=== PATIENT | female | born 2000 | race Caucasian/White ===

== ENCOUNTER 2018-11-15 11:03 | Observation (INO) | payer BC, OTHER ==
[2018-11-15 13:05] VITALS: BP 109/59; PULSE 75
--- NOTE | 2018-11-15 14:24 | XRAY ---
Exam: Biophysical profile. Comparison: None. Indication: Nonreactive stress test. The instrument technologist performed the exam. There was presence of at least 30 seconds of sustained breathing movements in a 30 minute time span resulting in a score of 2 out of 2. 3 or more gross body movements in 30 minutes of observation were seen resulting in a score of 2 out of 2. There was at least one episode of motion of a limb from a position of flexion to extension and a rapid return to flexion resulting in a score of 2 of 2 for tone. A pocket of amniotic fluid measuring at least 1 cm in perpendicular plane was seen resulting in a score of 2 of 2. In fact, amniotic fluid index was calculated 15.9 cm The heart rate measured 131 bpm. Impression: 1. Biophysical profile is scored as 8 points out of a maximum of 8 points for breathing movements, gross body movements, tone, and qualitative amniotic fluid volume.
== END 2018-11-15 14:20 | disposition home or self-care (01) ==
LOC: OB 11:03
PROVIDERS: ADMIT Family Medicine; ATTEND Family Medicine
DX: Z34.03 Encounter for supervision of normal first pregnancy, third trimester (principal)
CPT/HCPCS: 76818; 81003; G0378

== ENCOUNTER 2018-12-16 21:35 | Inpatient (IN) | payer BC, OTHER ==
[2018-12-17 00:37] VITALS: O2SAT 97
[2018-12-17 00:51] LABS: Hematocrit 33.9 % (35-47); Hemoglobin 11.3 gm/dl (12.0-16.0); Mean Cell Volume 92.4 fl (78-100); Mean Corpuscular Hgb Concent. 33.3 g/dl (32-36); Mean Platelet Volume 9.9 fl (6-9.5); Platelet Count 258 K/mm3 (150-450); Red Blood Count 3.67 M/mm3 (4.1-5.4); Red Cell Distribution Width 13.2 % (11.5-14.0); White Blood Count 10.7 K/mm3 (4.0-10.5)
[2018-12-17 01:08] LABS: Appearance CLEAR (CLEAR); Bilirubin NEGATIVE (NEGATIVE); Blood NEGATIVE Ery/ul (0-5); Glucose NEGATIVE (NEGATIVE); Ketones NEGATIVE (NEGATIVE); Leukocyte Esterase NEGATIVE (NEGATIVE); Nitrite NEGATIVE (NEGATIVE); Protein,Urine Dip NEGATIVE (Negative); Specific Gravity 1.009 (1.005-1.025); Urobilinogen NEGATIVE mg/dL (0-1)
[2018-12-17 01:19] LABS: Bacteria NONE SEEN /HPF (NEGATIVE)
[2018-12-17 01:22] LABS: Amphetamine,Urine NEGATIVE (NEGATIVE); Barbiturate,Urine NEGATIVE (NEGATIVE); Benzodiazepine,Urine NEGATIVE (NEGATIVE); Cocaine,Urine NEGATIVE (NEGATIVE); Methadone,Urine NEGATIVE (NEGATIVE); Opiate,Urine NEGATIVE (NEGATIVE); PCP,Urine NEGATIVE (NEGATIVE); THC,Urine NEGATIVE (NEGATIVE)
[2018-12-17 01:24] LABS: Mean Corpuscular Hemoglobin 30.7 pg (26-32)
[2018-12-17 01:36] LABS: ABO TYPING O; Antibody Screen NEGATIVE (NEGATIVE); RH TYPING POSITIVE
[2018-12-17 02:23] LABS: BAND 5 % (0.0-2.0); Lymphocytes 12 % (24-44); Monocyte 6 % (0.0-12.0); Neutrophils 77 % (36.0-66.0); Platelet Estimate NORMAL (NORMAL); Total Cells Counted 100
[2018-12-17] MEDS ORDERED: BRETHINE 1 MG/ML SQ PRN (04:00)
[2018-12-17] MEDS ORDERED: Cervidil 10 MG VAG SCH (04:00)
[2018-12-17] MEDS ORDERED: XYLOCAINE 1% HCL 20 ML MDV IJ PRN (08:15)
[2018-12-17] MEDS ORDERED: PITOCIN 30 UNITS/ LR 500 ML 30 UNITS/500 ML IV.SOLN. IV SCH (08:15)
[2018-12-17] MEDS ORDERED: Lactated Ringers 1,000 ML IV SCH (16:30)
[2018-12-17] MEDS ORDERED: PITOCIN 30 UNITS/ LR 500 ML 500 ML IV SCH (16:30)
[2018-12-17] MEDS: Lactated Ringers 1,000 ML IV SCH (16:55)
[2018-12-17] MEDS ORDERED: OMNIPEN 2 GM / NACL 100ML 100 ML IV ONE (17:16)
[2018-12-17] MEDS: OMNIPEN 1GM / NaCl 100ML 100 ML IV SCH (21:40)
[2018-12-18] MEDS: Lactated Ringers 1,000 ML IV SCH (01:32)
[2018-12-18] MEDS: OMNIPEN 1GM / NaCl 100ML 100 ML IV SCH ×2 (02:10→06:05)
[2018-12-18] MEDS ORDERED: Lactated Ringers 1,000 ML IV ONE (02:12)
[2018-12-18] MEDS ORDERED: Ephedrine Sulfate 50 MG/ML IV PRN (02:12)
[2018-12-18] MEDS ORDERED: OB EPIDURAL NAROPIN/SUFENTANIL IN NACL EPIDURAL PRN (02:12)
[2018-12-18] MEDS ORDERED: Sensorcaine 0.25% 10 ML ONE (08:38)
[2018-12-18] MEDS ORDERED: Mylicon 80MG PO PRN (09:25)
[2018-12-18] MEDS ORDERED: NORCO 5/325 MG PO PRN (09:25)
[2018-12-18] MEDS ORDERED: Dulcolax 10 MG SUPP PR PRN (09:25)
[2018-12-18] MEDS ORDERED: Ambien 10 MG PO PRN (09:25)
[2018-12-18] MEDS ORDERED: CORTISONE 1% CREAM TP PRN (09:25)
[2018-12-18] MEDS ORDERED: Anucort-HC SUPPOSITORY PR PRN (09:25)
[2018-12-18] MEDS ORDERED: LANSINOH 40 GM TOP PRN (09:25)
[2018-12-18] MEDS ORDERED: TYLENOL EXTRA STRENGTH 500 MG PO PRN (09:25)
[2018-12-18] MEDS ORDERED: TUCKS TP PRN (09:25)
[2018-12-18] MEDS ORDERED: Dermoplast Spray TP PRN (09:25)
[2018-12-18] MEDS ORDERED: MOTRIN 400 MG PO PRN (09:25)
[2018-12-18] MEDS: Colace 100 MG PO SCH ×2 (15:16→23:13)
[2018-12-18] MEDS: FERREX 150 PO SCH (15:16)
[2018-12-18 21:05] LABS: Hematocrit 34.7 % (35-47); Hemoglobin 11.4 gm/dl (12.0-16.0); Mean Cell Volume 93.8 fl (78-100); Mean Corpuscular Hemoglobin 30.8 pg (26-32); Mean Corpuscular Hgb Concent. 32.9 g/dl (32-36); Mean Platelet Volume 9.5 fl (6-9.5); Platelet Count 273 K/mm3 (150-450); Red Cell Distribution Width 13.4 % (11.5-14.0); White Blood Count 14.3 K/mm3 (4.0-10.5)
[2018-12-19 00:10] LABS: ATYPICAL LYMPHS 2 %; BAND 3 % (0.0-2.0); Basophil 1 % (0.0-1.0); Lymphocytes 16 % (24-44); Monocyte 7 % (0.0-12.0); Neutrophils 71 % (36.0-66.0); Platelet Estimate NORMAL (NORMAL); Total Cells Counted 100
[2018-12-19] MEDS: Colace 100 MG PO SCH ×2 (10:58→22:47)
[2018-12-19] MEDS: FERREX 150 PO SCH (10:58)
[2018-12-19] MEDS ORDERED: Adacel Vial IM ONE (14:00)
--- NOTE | 2018-12-20 07:55 | PCM.DS ---
Discharge Summary Date of Admission: 12/17/18 22:00 Admitting Physician: MATTHEW LUDWIG Consults: Consults on Case 12/18/18 02:13 Notify Anesthesia Provider PRN 12/18/18 09:25 Notify Physician ROUTINE Primary Care Provider: MATTHEW LUDWIG Allergies Allergies No Known Drug Allergies Allergy (Verified 12/16/18 23:50) Hospital Summary - Hospital Course Hospital Course: Pt came in as 18 yo at 38w5d for IOL due to IUGR (u/s with EFW 5lb 7oz, 3% ile). She was difficult to monitor; cervadil in place x 12h then started pitocin. Attempted to place FSE after SROM without success. Doppler done when pt had her epidural. Pt delivered without complication (for full details, see my delivery note). Post she has been doing great. Bleeding is decreasing. Taking occasional ibuprofen. . Ready to d/c home today with baby. - Vitals & Intake/Output Vital Signs: Vital Signs Temperature 97.9 F 12/20/18 02:00 Pulse Rate 88 12/20/18 02:00 Respiratory Rate 20 12/19/18 14:00 Blood Pressure 106/67 12/20/18 02:00 O2 Sat by Pulse Oximetry 97 12/18/18 04:30 Intake & Output: Intake & Output 12/17/18 12/18/18 12/19/18 12/20/18 11:59 11:59 11:59 11:59 Intake Total 450 500 Output Total 500 Balance 450 0 Weight 119.748 kg - Lab Result Diagrams: 12/18/18 21:02 Micro Results-Entire Visit: Microbiology 12/18/18 10:12 Urine Culture - Preliminary Catherized NO GROWTH TO DATE - Procedures and Test Procedures and Tests throughout Hospitalization: Therapy Orders & Screens 12/18/18 09:16 Standby STAT Comment: Diagnosis: cervidil induction Discharge Exam General Appearance: no apparent distress, alert, obese Neurologic Exam: oriented x 3, cooperative Eye Exam: eyes nml inspection Ears, Nose, Throat Exam: moist mucous membranes Respiratory Exam: normal breath sounds, lungs clear, No crackles/rales, No rhonchi, No wheezing Cardiovascular Exam: regular rate/rhythm, normal heart sounds, No murmur Gastrointestinal/Abdomen Exam: soft, normal bowel sounds, other (fundus firm under umbilicus) Back Exam: normal inspection, No rash Extremity Exam: normal inspection, No pedal edema, No swelling Skin Exam: normal color, warm, dry, No rash Final Diagnosis/Problem List - Final Discharge Diagnosis/Problem (1) Spontaneous vaginal delivery Current Visit: Yes Status: Acute Assessment & Plan: Doing great, PPD #2, home today. Code(s): O80 - ENCOUNTER FOR FULL-TERM UNCOMPLICATED DELIVERY - Discharge Disposition: Home, Self-Care Condition: Good Prescriptions: New Ibuprofen 600 mg PO TID PRN #35 tablet PRN Reason: Pain Continue Vits W-Ca,Fe,FA(<1Mg) [] 1 tab PO DAILY Acetaminophen [Tylenol] 650 mg PO Q4H PRN PRN PRN Reason: Pain Follow up with: MATTHEW LUDWIG [Primary Care Provider] - 1 Week
[2018-12-20] MEDS: Colace 100 MG PO SCH (08:54)
[2018-12-20] MEDS: FERREX 150 PO SCH (08:54)
[2018-12-20 09:04] VITALS: BP 103/59; PULSE 89
== END 2018-12-20 11:00 | disposition home or self-care (01) | DRG 807 ==
LOC: OB 21:50 → OBSVTOIN 12-17 21:45 → INTOOBSV 12-17 21:45 → OBSVTOIN 12-17 22:00 → MED SURG 12-18 21:11
PROVIDERS: ADMIT Family Medicine; ATTEND Family Medicine
PROC: 10E0XZZ Delivery of Products of Conception, External Approach (ICD-10-PCS; principal; 2018-12-18)
DX: O71.4 Obstetric high vaginal laceration alone (principal); Z37.0 Single live birth; Z3A.38 38 weeks gestation of pregnancy
CPT/HCPCS: 36415; 76805; 80307; 81001; 83986; 85025; 86850; 86900; 86901; 87086; 90715; 94799; G0378; J0290; J2590; J2795; A9270-GY

== ENCOUNTER 2019-03-24 16:56 | Emergency (ER) | payer OTHER ==
[2019-03-24 17:14] VITALS: BP 136/76; PULSE 76; O2SAT 97
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
[2019-03-24] MEDS ORDERED: SILVADENE 50 GM TP ONE ×2 (17:34→17:35)
== END 2019-03-24 17:56 | disposition home or self-care (01) ==
LOC: ED 16:56
DX: T21.11XA Burn of first degree of chest wall, initial encounter (principal); T21.12XA Burn of first degree of abdominal wall, initial encounter; X12.XXXA Contact with other hot fluids, initial encounter; Y93.G3 Activity, cooking and baking; Y92.9 Unspecified place or not applicable
CPT/HCPCS: 99283; A9270-GY

== ENCOUNTER 2019-03-25 10:43 | Emergency (ER) | payer OTHER ==
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
[2019-03-25] MEDS ORDERED: KEFLEX 500 MG PO ONE (11:09)
[2019-03-25] MEDS ORDERED: KEFLEX 500 MG ONE (11:10)
[2019-03-25 11:38] VITALS: BP 147/86; PULSE 78; O2SAT 98
== END 2019-03-25 11:39 | disposition home or self-care (01) ==
LOC: ED 10:43
DX: T21.21XD Burn of second degree of chest wall, subsequent encounter (principal); T21.22XD Burn of second degree of abdominal wall, subsequent encounter; X10.2XXD Contact with fats and cooking oils, subsequent encounter
CPT/HCPCS: 99283; A9270-GY

== ENCOUNTER 2020-06-24 10:40 | Observation (INO) | payer BC, OTHER ==
[2020-06-24 11:50] VITALS: BP 125/57; PULSE 89
--- NOTE | 2020-06-24 12:33 | XRAY ---
Indication: Decreased movement. Ultrasound biophysical profile exam performed. Comparison: None for this . There is a single intrauterine with heart rate 154 BPM. Four-quadrant JOLLY is 10.4 cm. Largest pocket 3.8 cm. 2 points given for breathing, movements, tone, and qualitative amniotic fluid volume. Impression: Total biophysical profile score is 8 out of 8.
== END 2020-06-24 13:30 | disposition home or self-care (01) ==
LOC: OB 11:19
PROVIDERS: ADMIT Family Medicine; ATTEND Family Medicine
DX: Z34.93 Encounter for supervision of normal pregnancy, unspecified, third trimester (principal); Z3A.39 39 weeks gestation of pregnancy
CPT/HCPCS: 59025; 76818; G0378

== ENCOUNTER 2020-07-01 13:40 | Inpatient (IN) | payer BC, OTHER ==
[2020-07-01] MEDS ORDERED: XYLOCAINE 1% HCL 20 ML MDV IJ PRN (13:48)
[2020-07-01] MEDS ORDERED: BRETHINE 1 MG/ML SQ PRN (13:48)
[2020-07-01] MEDS ORDERED: PITOCIN 30 UNITS/ LR 500 ML 30 UNITS/500 ML IV.SOLN. IV SCH (14:00)
[2020-07-01 14:25] LABS: Absolute Neutrophil Ct (ANC) 7.62 (1.4-6.9); BASOPHIL % 0.2 % (0.0-0.4); Basophil (Absolute #) 0.02 (0-0.4); Eosinophil % 0.4 % (0.00-5.0); Eosinophil (Absolute #) 0.04 (0-0.5); Hematocrit 37.6 % (35-47); Hemoglobin 12.3 gm/dl (12.0-16.0); Lymphocyte (Absolute #) 1.71 (1.0-4.6); Lymphocytes % 17.1 % (24.0-44.0); Mean Cell Volume 90.2 fl (78-100); Mean Corpuscular Hemoglobin 29.5 pg (26-32); Mean Corpuscular Hgb Concent. 32.7 g/dl (32-36); Mean Platelet Volume 10.5 fl (7.5-11.0); Neutrophil % 76.3 % (36.0-66.0); Platelet Count 254 K/mm3 (150-450); Red Blood Count 4.17 M/mm3 (4.1-5.4); Red Cell Distribution Width 13.7 % (11.5-14.0)
[2020-07-01] MEDS ORDERED: Cervidil 10 MG VAG SCH ×2 (15:00→18:30)
[2020-07-01 15:05] LABS: ABO TYPING O; Antibody Screen NEGATIVE (NEGATIVE); RH TYPING POSITIVE
[2020-07-01 19:00] LABS: Amphetamine,Urine NEGATIVE (NEGATIVE); Barbiturate,Urine NEGATIVE (NEGATIVE); Benzodiazepine,Urine NEGATIVE (NEGATIVE); Cocaine,Urine NEGATIVE (NEGATIVE); Methadone,Urine NEGATIVE (NEGATIVE); Opiate,Urine NEGATIVE (NEGATIVE); PCP,Urine NEGATIVE (NEGATIVE); THC,Urine NEGATIVE (NEGATIVE)
[2020-07-01 22:01] LABS: Appearance SLIGHTLY CLOUDY (CLEAR); Bacteria RARE /HPF (NEGATIVE); Bilirubin NEGATIVE (NEGATIVE); Blood SMALL Ery/ul (0-5); Epithelial Cells RARE /HPF (FEW); Glucose NEGATIVE (NEGATIVE); Hyaline Casts 0-2 /LPF (0-2); Ketones NEGATIVE (NEGATIVE); Leukocyte Esterase LARGE (NEGATIVE); Nitrite NEGATIVE (NEGATIVE); Protein,Urine Dip NEGATIVE (Negative); Specific Gravity 1.006 (1.005-1.025); Urobilinogen NEGATIVE mg/dL (0-1)
[2020-07-01] MEDS ORDERED: Lactated Ringers 1,000 ML IV ONE (23:41)
[2020-07-02] MEDS ORDERED: Erythromycin 1 GM ONE (01:28)
[2020-07-02] MEDS ORDERED: Vitamin K 1 MG ONE (01:28)
[2020-07-02] MEDS ORDERED: Dulcolax 10 MG SUPP PR PRN (02:43)
[2020-07-02] MEDS ORDERED: NORCO 5/325 MG PO PRN (02:43)
[2020-07-02] MEDS ORDERED: CORTISONE 1% CREAM TP PRN (02:43)
[2020-07-02] MEDS ORDERED: MOTRIN 400 MG PO PRN (02:43)
[2020-07-02] MEDS ORDERED: TYLENOL EXTRA STRENGTH 500 MG PO PRN (02:43)
[2020-07-02] MEDS ORDERED: Anucort-HC SUPPOSITORY PR PRN (02:43)
[2020-07-02] MEDS ORDERED: Mylicon 80MG PO PRN (02:43)
[2020-07-02] MEDS ORDERED: Dermoplast Spray TP PRN (02:43)
[2020-07-02] MEDS ORDERED: LANSINOH 40 GM TOP PRN (02:43)
[2020-07-02] MEDS ORDERED: PITOCIN 30 UNITS/ LR 500 ML 30 UNITS/500 ML IV.SOLN. IV SCH (03:00)
[2020-07-02] MEDS ORDERED: Lactated Ringers 1,000 ML IV SCH (03:00)
[2020-07-02] MEDS ORDERED: LANSINOH 40 GM ONE (04:06)
[2020-07-02] MEDS ORDERED: Dermoplast Spray ONE (04:06)
[2020-07-02 12:52] LABS: Absolute Neutrophil Ct (ANC) 9.47 (1.4-6.9); BASOPHIL % 0.2 % (0.0-0.4); Basophil (Absolute #) 0.02 (0-0.4); Eosinophil % 0.1 % (0.00-5.0); Eosinophil (Absolute #) 0.01 (0-0.5); Hematocrit 33.4 % (35-47); Hemoglobin 10.7 gm/dl (12.0-16.0); Lymphocyte (Absolute #) 1.83 (1.0-4.6); Lymphocytes % 15.1 % (24.0-44.0); Mean Cell Volume 91.8 fl (78-100); Mean Corpuscular Hemoglobin 29.4 pg (26-32); Mean Platelet Volume 10.4 fl (7.5-11.0); Monocyte (Absolute #) 0.81 (0.0-1.3); Monocytes % 6.7 % (0.0-12.0); Neutrophil % 77.9 % (36.0-66.0); Platelet Count 233 K/mm3 (150-450); Red Blood Count 3.64 M/mm3 (4.1-5.4); White Blood Count 12.1 K/mm3 (4.0-10.5)
[2020-07-02] MEDS: FERREX 150 PO SCH (18:17)
[2020-07-02] MEDS: Colace 100 MG PO SCH ×2 (18:17→21:16)
[2020-07-03] MEDS: FERREX 150 PO SCH (09:06)
[2020-07-03] MEDS: Colace 100 MG PO SCH (09:06)
[2020-07-03 19:05] VITALS: BP 138/88; PULSE 87; O2SAT 97
== END 2020-07-03 19:35 | disposition home or self-care (01) | DRG 998 ==
LOC: OB 13:40 → OBSVTOIN 23:00
PROVIDERS: ADMIT Family Medicine; ATTEND Family Medicine
DX: O80 Encounter for full-term uncomplicated delivery (principal); Z3A.40 40 weeks gestation of pregnancy; Z37.0 Single live birth
CPT/HCPCS: 36415; 80307; 81001; 85025; 86850; 86900; 86901; 87086; G0378; J2590; A9270-GY

== ENCOUNTER 2022-08-02 09:14 | Emergency (ER) | payer BC, OTHER ==
[2022-08-02 09:55] LABS: Absolute Neutrophil Ct (ANC) 4.68 x10^3/uL (1.4-6.9); BASOPHIL % 0.3 % (0.0-0.4); Basophil (Absolute #) 0.02 x10^3/uL (0-0.4); Eosinophil (Absolute #) 0.07 x10^3/uL (0-0.5); Hematocrit 41.4 % (35-47); IMMATURE GRAN # 0.03 x10^3u/L (0.00-0.03); IMMATURE GRAN % 0.4 % (0.00-0.4); Lymphocyte (Absolute #) 2.02 x10^3/uL (1.0-4.6); Lymphocytes % 28.1 % (24.0-44.0); Mean Cell Volume 89.6 fL (78-100); Mean Corpuscular Hemoglobin 28.1 pg (26-32); Mean Corpuscular Hgb Concent. 31.4 g/dL (32-36); Mean Platelet Volume 9.7 fL (7.5-11.0); Monocyte (Absolute #) 0.36 x10^3/uL (0.0-1.3); Neutrophil % 65.2 % (36.0-66.0); Platelet Count 297 x10^3/uL (150-450); Red Blood Count 4.62 x10^6/uL (4.1-5.4); Red Cell Distribution Width 13.4 % (11.5-14.0); White Blood Count 7.2 x10^3/uL (4.0-10.5)
[2022-08-02 10:02] LABS: ALKALINE PHOSPHATASE 127 U/L (38-126); ANION GAP 12.6 MEQ/L (5-15); BLOOD UREA NITROGEN 11 mg/dL (7-17); CHLORIDE 105 mmol/L (98-107); Calcium 8.8 mg/dL (8.4-10.2); Carbon Dioxide 26 mmol/L (22-30); Creatinine 1 0.53 mg/dL (0.52-1.04); EST GLOMERULAR FILTRATION RATE > 60.0 ML/MIN; Glucose 94 mg/dL (74-106); Potassium 4.2 mmol/L (3.5-5.1); SGOT/AST 33 U/L (14-36); SGPT/ALT 28 U/L (0-35); SODIUM 139 mmol/L (137-145)
--- NOTE | 2022-08-02 10:03 | ERPHSYRPT ---
- History of Present Illness Time Seen by Provider: 08/02/22 09:43 Source: patient Exam Limitations: no limitations Patient Subjective Stated Complaint: Pt states that she is 5 weeks and she was having light cramps last night and then had bleeding this morning that has almost stopped and has not pain Triage Nursing Assessment: Pt brought self to the ER, anabarrett lucio, denies pain at this time, 3 children at home born back to back, last one is 7 months old, pt stated that this morning she had to wipe 3 times to be able to get all of the blood, bleeding has basically stopped at this point, pt denies any issues with any of her other pregnancies, pt intends to see Dr. Santiago and they are to call her on Wednesday with an appt, pulses normal, skin n/w/d, doesn't appear to be in any distress Timing/Duration: yesterday Activites at Onset: none Quality: cramping Onset Location: pelvic pain Pain Radiation: none Severity of Pain-Max: mild Severity of Pain-Current: none Prior abdominal problems: none Sexual intercourse history: non-contributory Modifying Factors: Improves With: nothing Associated Symptoms: denies symptoms Allergies/Adverse Reactions: No Known Drug Allergies Allergy (Verified 08/02/22 09:34) Home Medications: Vits W-Ca,Fe,FA(<1Mg) [] 1 tab PO DAILY 11/15/18 [History] Amoxicillin 500 mg PO TID 08/02/22 [History] Hx Tetanus, Diphtheria Vaccination/Date Given: Yes Hx Influenza Vaccination/Date Given: Yes Hx Pneumococcal Vaccination/Date Given: No Travel Risk - International Travel Have you traveled outside of the country in past 3 weeks: No - Coronavirus Screening Are you exhibiting any of the following symptoms?: No Close contact with a COVID-19 positive Pt in past 14-21 Days: No - Vaccine Status Have you recieved a Covid-19 vaccination: No - Review of Systems Constitutional: No Symptoms Eyes: No Symptoms Ears, Nose, & Throat: No Symptoms Respiratory: No Symptoms Cardiac: No Symptoms Abdominal/Gastrointestinal: No Symptoms Genitourinary Symptoms: No Symptoms Musculoskeletal: No Symptoms Skin: No Symptoms Neurological: No Symptoms Psychological: No Symptoms Endocrine: No Symptoms Hematologic/Lymphatic: No Symptoms Immunological/Allergic: No Symptoms All Other Systems: Reviewed and Negative - Past Medical History Pertinent Past Medical History: Yes Neurological History: No Pertinent History ENT History: No Pertinent History Cardiac History: No Pertinent History Respiratory History: No Pertinent History Endocrine Medical History: No Pertinent History Musculoskeletal History: No Pertinent History GI Medical History: Gallbladder Disease History: No Pertinent History Psycho-Social History: No Pertinent History Female Reproductive Disorders: No Pertinent History Other Medical History: SX HX: CHOLECYSTECTOMY - Past Surgical History Past Surgical History: Yes Neuro Surgical History: No Pertinent History Cardiac: No Pertinent History Respiratory: No Pertinent History Gastrointestinal: Cholecystectomy Genitourinary: No Pertinent History Musculoskeletal: No Pertinent History Female Surgical History: No Pertinent History - Social History Smoking Status: Never smoker Exposure to second hand smoke: No Drug Use: none Patient Lives Alone: No Significant Family History: no pertinent family hx, with GI flu bug last week - Female History Hx Now: Yes Gestational Age: 5 weeks - Nursing Vital Signs Nursing Vital Signs: Initial Vital Signs Temperature 97.3 F 08/02/22 09:20 Pulse Rate 84 08/02/22 09:20 Blood Pressure 128/53 08/02/22 09:20 O2 Sat by Pulse Oximetry 100 08/02/22 09:20 Pain Scale Pain Intensity 0 - Physical Exam General Appearance: no apparent distress, alert Eye Exam: PERRL/EOMI Neck Exam: normal inspection Respiratory Exam: normal breath sounds Cardiovascular Exam: regular rate/rhythm, normal heart sounds Gastrointestinal/Abdomen Exam: soft, normal bowel sounds Pelvic Exam: deferred, other (getting pelvic US) Rectal Exam: deferred Back Exam: normal inspection, normal range of motion Extremity Exam: normal inspection, normal range of motion Neurologic Exam: alert, oriented x 3 Skin Exam: normal color SpO2 Interpretation: normal SpO2: 100 O2 Delivery: Room Air - Course Nursing assessment & vital signs reviewed: Yes - Radiology Ultrasound Exam OB Ultrasound: tele radiology report, No Torsion/Nml Flow, Other (no clear gestational sac) Ordered Tests: Active Orders 24 hr Category Date Time Status IV Insertion STAT Care 08/02/22 12:06 Active OB TRANSVAGINAL [US] Stat Exams 08/02/22 10:29 Taken CBC W DIFF Stat Lab 08/02/22 09:52 Completed CMP Stat Lab 08/02/22 09:52 Completed CULTURE,URINE Stat Lab 08/02/22 10:26 Received HCG, Quantitative (Inhouse) Stat Lab 08/02/22 09:52 Completed UA W/RFX UR CULTURE Stat Lab 08/02/22 10:26 Completed Medication Summary Generic Name Dose Route Start Last Admin Trade Name Freq PRN Reason Stop Dose Admin Ceftriaxone Sodium/Dextrose 1 g in 50 mls @ 100 mls/hr 08/02/22 11:49 08/02/22 11:53 Rocephin 1 Gm-D5w 50 Ml Bag IV 08/02/22 12:18 100 mls/hr STAT STA 100 mls/hr Administration Discontinued Medications Generic Name Dose Route Start Last Admin Trade Name Freq PRN Reason Stop Dose Admin Ceftriaxone Sodium/Dextrose Confirm 08/02/22 11:52 Rocephin 1 Gm-D5w 50 Ml Bag Administered 08/02/22 11:53 Dose 1 g in 50 mls @ ud IV .STK-MED ONE Lab/Rad Data: Laboratory Result Diagrams 08/02/22 09:52 08/02/22 09:52 Laboratory Results 08/02/22 08/02/22 08/02/22 Range/Units 10:26 09:52 09:52 WBC (4.0-10.5) x10^3/uL RBC (4.1-5.4) x10^6/uL Hgb (12.0-16.0) g/dL Hct (35-47) % MCV (78-100) fL MCH (26-32) pg MCHC (32-36) g/dL RDW (11.5-14.0) % Plt Count (150-450) x10^3/uL MPV (7.5-11.0) fL Gran % (36.0-66.0) % Immature Gran % (Auto) (0.00-0.4) % Nucleat RBC Rel Count (0.00-0.1) % Eos # (Auto) (0-0.5) x10^3/uL Immature Gran # (Auto) (0.00-0.03) x10^3u/L Absolute Lymphs (auto) (1.0-4.6) x10^3/uL Absolute Monos (auto) (0.0-1.3) x10^3/uL Absolute Nucleated RBC (0.00-0.01) x10^3u/L Lymphocytes % (24.0-44.0) % Monocytes % (0.0-12.0) % Eosinophils % (0.00-5.0) % Basophils % (0.0-0.4) % Absolute Granulocytes (1.4-6.9) x10^3/uL Basophils # (0-0.4) x10^3/uL Sodium 139 (137-145) mmol/L Potassium 4.2 (3.5-5.1) mmol/L Chloride 105 (98-107) mmol/L Carbon Dioxide 26 (22-30) mmol/L Anion Gap 12.6 (5-15) MEQ/L BUN 11 (7-17) mg/dL Creatinine 0.53 (0.52-1.04) mg/dL Estimated GFR > 60.0 ML/MIN Glucose 94 (74-106) mg/dL Calcium 8.8 (8.4-10.2) mg/dL Total Bilirubin 0.60 (0.2-1.3) mg/dL AST 33 (14-36) U/L ALT 28 (0-35) U/L Alkaline Phosphatase 127 H (38-126) U/L Serum Total Protein 7.0 (6.3-8.2) g/dL Albumin 4.0 (3.5-5.0) g/dL Beta HCG, Quant 301.80 mIU/ml Urine Color Yellow (Yellow) Urine Appearance Clear (Clear) Urine pH 6.5 (4.6-8.0) Ur Specific Mazon 1.020 (1.005-1.030) Urine Protein Trace A (Negative) Urine Glucose (UA) Negative (Negative) mg/dL Urine Ketones Negative (Negative) Urine Blood Large A (Negative) Urine Nitrite Negative (Negative) Urine Bilirubin Negative (Negative) Urine Urobilinogen 0.2 (0.2) mg/dL Ur Leukocyte Esterase Moderate A (Negative) U Hyaline Cast (Auto) NONE SEEN (0-2) /LPF Urine Microscopic RBC >100 A (0-5) /HPF Urine Microscopic WBC 21-50 A (0-5) /HPF Ur Epithelial Cells Moderate A (None Seen) /HPF Urine Bacteria Few A (None Seen) /HPF Urine Culture Reflexed YES (NO) 08/02/22 Range/Units 09:52 WBC 7.2 (4.0-10.5) x10^3/uL RBC 4.62 (4.1-5.4) x10^6/uL Hgb 13.0 (12.0-16.0) g/dL Hct 41.4 (35-47) % MCV 89.6 (78-100) fL MCH 28.1 (26-32) pg MCHC 31.4 L (32-36) g/dL RDW 13.4 (11.5-14.0) % Plt Count 297 (150-450) x10^3/uL MPV 9.7 (7.5-11.0) fL Gran % 65.2 (36.0-66.0) % Immature Gran % (Auto) 0.4 (0.00-0.4) % Nucleat RBC Rel Count 0.0 (0.00-0.1) % Eos # (Auto) 0.07 (0-0.5) x10^3/uL Immature Gran # (Auto) 0.03 (0.00-0.03) x10^3u/L Absolute Lymphs (auto) 2.02 (1.0-4.6) x10^3/uL Absolute Monos (auto) 0.36 (0.0-1.3) x10^3/uL Absolute Nucleated RBC 0.00 (0.00-0.01) x10^3u/L Lymphocytes % 28.1 (24.0-44.0) % Monocytes % 5.0 (0.0-12.0) % Eosinophils % 1.0 (0.00-5.0) % Basophils % 0.3 (0.0-0.4) % Absolute Granulocytes 4.68 (1.4-6.9) x10^3/uL Basophils # 0.02 (0-0.4) x10^3/uL Sodium (137-145) mmol/L Potassium (3.5-5.1) mmol/L Chloride (98-107) mmol/L Carbon Dioxide (22-30) mmol/L Anion Gap (5-15) MEQ/L BUN (7-17) mg/dL Creatinine (0.52-1.04) mg/dL Estimated GFR ML/MIN Glucose (74-106) mg/dL Calcium (8.4-10.2) mg/dL Total Bilirubin (0.2-1.3) mg/dL AST (14-36) U/L ALT (0-35) U/L Alkaline Phosphatase (38-126) U/L Serum Total Protein (6.3-8.2) g/dL Albumin (3.5-5.0) g/dL Beta HCG, Quant mIU/ml Urine Color (Yellow) Urine Appearance (Clear) Urine pH (4.6-8.0) Ur Specific Mazon (1.005-1.030) Urine Protein (Negative) Urine Glucose (UA) (Negative) mg/dL Urine Ketones (Negative) Urine Blood (Negative) Urine Nitrite (Negative) Urine Bilirubin (Negative) Urine Urobilinogen (0.2) mg/dL Ur Leukocyte Esterase (Negative) U Hyaline Cast (Auto) (0-2) /LPF Urine Microscopic RBC (0-5) /HPF Urine Microscopic WBC (0-5) /HPF Ur Epithelial Cells (None Seen) /HPF Urine Bacteria (None Seen) /HPF Urine Culture Reflexed (NO) - Progress Progress: re-examined, unchanged Air Movement: good Progress Note: 08/02/22 12:09 Very early , not expected to see any definite IUP, no suggestions of ectopic, UTI, Rx macrobid, contact OB tomorrow Blood Culture(s) Obtained: No Antibiotics given: Yes Counseled pt/family regarding: lab results, diagnosis, need for follow-up, rad results Medical Desision Making - Diagnostic Testing Diagnostic test were ordered, analyzed, and reviewed by me: Yes Radiological Interpretation: Reviewed by me - Risk of complications Minimal Risk: Minimal risk of morbidity - Departure Departure Disposition: Home Clinical Impression: Threatened in early UTI (urinary tract infection) during Qualifiers: Trimester: first trimester Qualified Code(s): O23.41 - Unspecified infection of urinary tract in , first trimester Condition: Stable Critical Care Time: No Referrals: MATTHEW DELUCA [Primary Care Provider] - Follow up other (Dr. Santiago for OB care tomorrow) Instructions: Threatened Miscarriage (DC) Additional Instructions: Start the new antibiotic. Tylenol OK. No intercourse or tampon use. Contact Dr. Santiago for follow-up as planned. Prescriptions: Nitrofurantoin Macro 100 mg [Macrobid 100MG Capsule] 100 mg PO BID #14 cap
[2022-08-02 10:35] LABS: Appearance Clear (Clear); Bacteria Few /HPF (None Seen); Bilirubin Negative (Negative); Blood Large (Negative); Epithelial Cells Moderate /HPF (None Seen); Glucose, Urine Negative (Negative); Hyaline Casts NONE SEEN /LPF (0-2); Ketones Negative (Negative); Leukocyte Esterase Moderate (Negative); Nitrite Negative (Negative); Ph 6.5 (4.6-8.0); Protein,Urine Dip Trace (Negative); RBC >100 /HPF (0-5); Urobilinogen 0.2 mg/dL (0.2); WBC 21-50 /HPF (0-5)
[2022-08-02 10:38] LABS: ADD URINE CULTURE? YES (NO)
[2022-08-02] MEDS ORDERED: ROCEPHIN 1 Gm-D5w 50 ml Bag** 1 G/50 ML IVPB IV STA (11:49)
[2022-08-02] MEDS ORDERED: ROCEPHIN 1 Gm-D5w 50 ml Bag** 1 G/50 ML IVPB IV ONE (11:52)
[2022-08-02 12:28] VITALS: BP 128/79; PULSE 72; O2SAT 99
--- NOTE | 2022-08-02 19:19 | XRAY ---
Indication: and bleeding. Two-dimensional transvaginal early OB ultrasound performed. Comparison: None for this . Uterus anteverted measuring 9.0 x 4.9 x 6.3 cm. No focal uterine mass. Endometrial stripe measures 10.6 mm. No intrauterine gestational sac, pole, or heart tones. Endocervix demonstrates tiny sliver of nonspecific fluid. Right ovary measures 5.2 x 5.5 x 5.2 cm and the left measures 3.0 x 1.9 x 2.9 cm with normal perfusion. Right ovary demonstrates 4.9 x 4.8 x 4.2 cm anechoic cyst. Small cul-de-sac fluid presumed physiologic. Impression: 1. Negative for intrauterine/ectopic . 2. 4.9 cm right ovary cyst and small physiologic cul-de-sac fluid. Comment: Preliminary report was given.
== END 2022-08-02 12:33 | disposition home or self-care (01) ==
LOC: ED 09:14
DX: O20.0 Threatened abortion (principal); O23.41 Unspecified infection of urinary tract in pregnancy, first trimester; N39.0 Urinary tract infection, site not specified; Z28.310 Unvaccinated for COVID-19; Z3A.01 Less than 8 weeks gestation of pregnancy
CPT/HCPCS: 36000; 36415; 76817; 80053; 81001; 84702; 85025; 87086; 96365; 99284; J0696

== ENCOUNTER 2022-08-05 11:14 | Emergency (ER) | payer BC, OTHER ==
[2022-08-05 13:11] LABS: Absolute Neutrophil Ct (ANC) 4.87 x10^3/uL (1.4-6.9); BASOPHIL % 0.3 % (0.0-0.4); Basophil (Absolute #) 0.02 x10^3/uL (0-0.4); Eosinophil % 0.7 % (0.00-5.0); Eosinophil (Absolute #) 0.05 x10^3/uL (0-0.5); Hematocrit 40.4 % (35-47); Hemoglobin 13.2 g/dL (12.0-16.0); IMMATURE GRAN # 0.03 x10^3u/L (0.00-0.03); IMMATURE GRAN % 0.4 % (0.00-0.4); Lymphocyte (Absolute #) 1.74 x10^3/uL (1.0-4.6); Lymphocytes % 24.3 % (24.0-44.0); Mean Cell Volume 87.4 fL (78-100); Mean Corpuscular Hemoglobin 28.6 pg (26-32); Mean Corpuscular Hgb Concent. 32.7 g/dL (32-36); Mean Platelet Volume 9.3 fL (7.5-11.0); Monocyte (Absolute #) 0.45 x10^3/uL (0.0-1.3); Monocytes % 6.3 % (0.0-12.0); Platelet Count 294 x10^3/uL (150-450); Red Blood Count 4.62 x10^6/uL (4.1-5.4); Red Cell Distribution Width 13.3 % (11.5-14.0); White Blood Count 7.2 x10^3/uL (4.0-10.5)
--- NOTE | 2022-08-05 13:14 | XRAY ---
Indication: First trimester bleeding. Two-dimensional transvaginal early OB ultrasound performed. Comparison: August 02, 2022 Uterus remains anteverted without intrauterine gestational sac, pole, or heart tones. Endometrial stripe is thickened measuring 5.1 mm. No endometrial cavity mass or fluid collection. Right ovary measures 4.0 x 5.5 x 4.2 cm and the left measures 3.6 x 1.6 x 2.8 cm. Normal perfusion bilaterally. Right ovary again demonstrates a 4.8 x 4.4 x 3.8 cm anechoic cyst grossly unchanged. Stable small cul-de-sac fluid. Impression: No change compared to sonogram 3 days ago. Again no intrauterine/ectopic . Stable 4.8 cm right ovary cyst and small cul-de-sac fluid. No new abnormalities.
[2022-08-05 13:25] LABS: ALBUMIN 3.8 g/dL (3.5-5.0); ALKALINE PHOSPHATASE 109 U/L (38-126); ANION GAP 10.8 MEQ/L (5-15); BLOOD UREA NITROGEN 9 mg/dL (7-17); CHLORIDE 105 mmol/L (98-107); Calcium 9.1 mg/dL (8.4-10.2); Carbon Dioxide 28 mmol/L (22-30); Creatinine 1 0.57 mg/dL (0.52-1.04); EST GLOMERULAR FILTRATION RATE > 60.0 ML/MIN; Glucose 103 mg/dL (74-106); Potassium 4.3 mmol/L (3.5-5.1); SGOT/AST 30 U/L (14-36); SGPT/ALT 27 U/L (0-35); SODIUM 140 mmol/L (137-145); Total Protein 6.7 g/dL (6.3-8.2)
[2022-08-05 13:45] LABS: Appearance Cloudy (Clear); Bilirubin Negative (Negative); Blood Large (Negative); Glucose, Urine Negative (Negative); Ketones Negative (Negative); Leukocyte Esterase Small (Negative); Nitrite Negative (Negative); Ph 6.5 (4.6-8.0); Protein,Urine Dip 30 (Negative)
--- NOTE | 2022-08-05 13:49 | ERPHSYRPT ---
- History of Present Illness Time Seen by Provider: 08/05/22 11:45 Source: patient Exam Limitations: no limitations Patient Subjective Stated Complaint: 5 wks , vaginal bleeding this am with possible miscarriage Triage Nursing Assessment: Patient c/o spotting blood since and states noticed tissue possible fetus in paper when wiping approx 3 hours ago. Denies any type of pain, aaox3, walked in. Denies abd pain. Denies any problems with urination. Physician History: Patient is a 21-year-old female G4, P3 presents to our ED for evaluation of vaginal bleeding. Patient states she has been experiencing some pelvic cramps since yesterday. Pelvic cramping has since resolved currently she is pain-free. This morning patient passed a large clot which she believes may be the fetus. Patient otherwise asymptomatic. Patient had a pelvic ultrasound 3 days ago which did not reveal a . Patient states [employer] physician is . Patient otherwise feels well. She voices no other complaints or concerns at this time. Portions of this note were created with voice recognition technology. There may be grammatical, spelling, punctuation or sound alike errors Timing/Duration: today Severity: moderate Modifying Factors: Improves With: nothing Associated Symptoms: denies symptoms, fever Allergies/Adverse Reactions: No Known Drug Allergies Allergy (Verified 08/02/22 09:34) Home Medications: Vits W-Ca,Fe,FA(<1Mg) [] 1 tab PO DAILY 11/15/18 [History] Amoxicillin 500 mg PO TID 08/02/22 [History] Hx Tetanus, Diphtheria Vaccination/Date Given: Yes Hx Influenza Vaccination/Date Given: No Hx Pneumococcal Vaccination/Date Given: No Immunizations Up to Date: No Travel Risk - International Travel Have you traveled outside of the country in past 3 weeks: No - Coronavirus Screening Are you exhibiting any of the following symptoms?: No Close contact with a COVID-19 positive Pt in past 14-21 Days: No - Vaccine Status Have you recieved a Covid-19 vaccination: No - Review of Systems Constitutional: No Symptoms, No Fever, No Chills Eyes: No Symptoms Ears, Nose, & Throat: No Symptoms Respiratory: No Symptoms, No Cough, No Dyspnea Cardiac: No Symptoms, No Chest Pain, No Edema, No Syncope Abdominal/Gastrointestinal: No Symptoms, No Abdominal Pain, No Nausea, No Vomiting, No Diarrhea Genitourinary Symptoms: No Symptoms, No Dysuria Musculoskeletal: No Symptoms, No Back Pain, No Neck Pain Skin: No Symptoms, No Rash Neurological: No Symptoms, No Dizziness, No Focal Weakness, No Sensory Changes Psychological: No Symptoms Endocrine: No Symptoms Hematologic/Lymphatic: No Symptoms Immunological/Allergic: No Symptoms All Other Systems: Reviewed and Negative - Past Medical History Pertinent Past Medical History: Yes Neurological History: No Pertinent History ENT History: No Pertinent History Cardiac History: No Pertinent History Respiratory History: No Pertinent History Endocrine Medical History: No Pertinent History Musculoskeletal History: No Pertinent History GI Medical History: Gallbladder Disease History: No Pertinent History Psycho-Social History: No Pertinent History Female Reproductive Disorders: No Pertinent History Other Medical History: SX HX: CHOLECYSTECTOMY - Past Surgical History Past Surgical History: Yes Neuro Surgical History: No Pertinent History Cardiac: No Pertinent History Respiratory: No Pertinent History Gastrointestinal: Cholecystectomy Genitourinary: No Pertinent History Musculoskeletal: No Pertinent History Female Surgical History: No Pertinent History - Social History Smoking Status: Never smoker Exposure to second hand smoke: No Drug Use: none Patient Lives Alone: No Significant Family History: no pertinent family hx, with GI flu bug last week - Female History Hx Last Menstrual Period: 06/24/22 Hx Now: Yes Gestational Age: 5 wks - Nursing Vital Signs Nursing Vital Signs: Initial Vital Signs Temperature 97.9 F 08/05/22 11:29 Pulse Rate 98 H 08/05/22 11:29 Respiratory Rate 18 08/05/22 11:29 Blood Pressure 139/81 08/05/22 11:29 O2 Sat by Pulse Oximetry 98 08/05/22 11:29 Pain Scale Pain Intensity 0 - Physical Exam General Appearance: no apparent distress, alert Eye Exam: PERRL/EOMI, eyes nml inspection Ears, Nose, Throat Exam: normal ENT inspection, TMs normal, pharynx normal, moist mucous membranes Neck Exam: normal inspection, non-tender, supple, full range of motion Respiratory Exam: normal breath sounds, lungs clear, airway intact, No respiratory distress Cardiovascular Exam: regular rate/rhythm, normal heart sounds, normal peripheral pulses Gastrointestinal/Abdomen Exam: soft, normal bowel sounds, No tenderness, No mass Back Exam: normal inspection, normal range of motion, No CVA tenderness, No vertebral tenderness Extremity Exam: normal inspection, normal range of motion, pelvis stable Neurologic Exam: alert, oriented x 3, cooperative, normal mood/affect, nml cerebellar function, nml station & gait, sensation nml, No motor deficits Skin Exam: normal color, warm, dry, No rash Lymphatic Exam: No adenopathy SpO2 Interpretation: normal SpO2: 97 O2 Delivery: Room Air - Course Nursing assessment & vital signs reviewed: Yes - Radiology Ultrasound Exam OB Ultrasound: tele radiology report (No gestational sac no pole or heart tones observed. Right ovarian cyst. Ultrasound unchanged from ultrasound performed 3 days ago.) Ordered Tests: Active Orders 24 hr Category Date Time Status OB <14 WKS 1ST GESTATION [US] Stat Exams 08/05/22 12:24 Completed CBC W DIFF Stat Lab 08/05/22 13:05 Completed CMP Stat Lab 08/05/22 13:05 Completed CULTURE,URINE Stat Lab 08/05/22 12:24 Received HCG, Quantitative (Inhouse) Stat Lab 08/05/22 13:05 Completed UA W/RFX UR CULTURE Stat Lab 08/05/22 12:24 Completed Medication Summary Discontinued Medications Generic Name Dose Route Start Last Admin Trade Name Freq PRN Reason Stop Dose Admin Nitrofurantoin Macrocrystals 100 mg 08/05/22 14:46 08/05/22 14:53 Nitrofurantoin Macro 100 Mg Capsule PO 08/05/22 14:47 Not Given STAT ONE Nitrofurantoin Macrocrystals Confirm 08/05/22 14:50 Nitrofurantoin Macro 100 Mg Capsule Administered 08/05/22 14:51 Dose 100 mg .ROUTE .[employer] ONE Lab/Rad Data: Laboratory Result Diagrams 08/05/22 13:05 08/05/22 13:05 Laboratory Results 08/05/22 08/05/22 08/05/22 Range/Units 13:05 13:05 13:05 WBC (4.0-10.5) x10^3/uL RBC (4.1-5.4) x10^6/uL Hgb (12.0-16.0) g/dL Hct (35-47) % MCV (78-100) fL MCH (26-32) pg MCHC (32-36) g/dL RDW (11.5-14.0) % Plt Count (150-450) x10^3/uL MPV (7.5-11.0) fL Gran % (36.0-66.0) % Immature Gran % (Auto) (0.00-0.4) % Nucleat RBC Rel Count (0.00-0.1) % Eos # (Auto) (0-0.5) x10^3/uL Immature Gran # (Auto) (0.00-0.03) x10^3u/L Absolute Lymphs (auto) (1.0-4.6) x10^3/uL Absolute Monos (auto) (0.0-1.3) x10^3/uL Absolute Nucleated RBC (0.00-0.01) x10^3u/L Lymphocytes % (24.0-44.0) % Monocytes % (0.0-12.0) % Eosinophils % (0.00-5.0) % Basophils % (0.0-0.4) % Absolute Granulocytes (1.4-6.9) x10^3/uL Basophils # (0-0.4) x10^3/uL Sodium 140 (137-145) mmol/L Potassium 4.3 (3.5-5.1) mmol/L Chloride 105 (98-107) mmol/L Carbon Dioxide 28 (22-30) mmol/L Anion Gap 10.8 (5-15) MEQ/L BUN 9 (7-17) mg/dL Creatinine 0.57 (0.52-1.04) mg/dL Estimated GFR > 60.0 ML/MIN Glucose 103 (74-106) mg/dL Calcium 9.1 (8.4-10.2) mg/dL Total Bilirubin 0.40 (0.2-1.3) mg/dL AST 30 (14-36) U/L ALT 27 (0-35) U/L Alkaline Phosphatase 109 (38-126) U/L Serum Total Protein 6.7 (6.3-8.2) g/dL Albumin 3.8 (3.5-5.0) g/dL Beta HCG, Quant 88.96 mIU/ml Urine Color (Yellow) Urine Appearance (Clear) Urine pH (4.6-8.0) Ur Specific Monroe (1.005-1.030) Urine Protein (Negative) Urine Glucose (UA) (Negative) mg/dL Urine Ketones (Negative) Urine Blood (Negative) Urine Nitrite (Negative) Urine Bilirubin (Negative) Urine Urobilinogen (0.2) mg/dL Ur Leukocyte Esterase (Negative) U Hyaline Cast (Auto) (0-2) /LPF Urine Microscopic RBC (0-5) /HPF Urine Microscopic WBC (0-5) /HPF Ur Epithelial Cells (None Seen) /HPF Urine Bacteria (None Seen) /HPF Urine Culture Reflexed (NO) ABO Group O Rh Factor POSITIVE Antibody Screen NEGATIVE (NEGATIVE) 08/05/22 08/05/22 Range/Units 13:05 12:24 WBC 7.2 (4.0-10.5) x10^3/uL RBC 4.62 (4.1-5.4) x10^6/uL Hgb 13.2 (12.0-16.0) g/dL Hct 40.4 (35-47) % MCV 87.4 (78-100) fL MCH 28.6 (26-32) pg MCHC 32.7 (32-36) g/dL RDW 13.3 (11.5-14.0) % Plt Count 294 (150-450) x10^3/uL MPV 9.3 (7.5-11.0) fL Gran % 68.0 H (36.0-66.0) % Immature Gran % (Auto) 0.4 (0.00-0.4) % Nucleat RBC Rel Count 0.0 (0.00-0.1) % Eos # (Auto) 0.05 (0-0.5) x10^3/uL Immature Gran # (Auto) 0.03 (0.00-0.03) x10^3u/L Absolute Lymphs (auto) 1.74 (1.0-4.6) x10^3/uL Absolute Monos (auto) 0.45 (0.0-1.3) x10^3/uL Absolute Nucleated RBC 0.00 (0.00-0.01) x10^3u/L Lymphocytes % 24.3 (24.0-44.0) % Monocytes % 6.3 (0.0-12.0) % Eosinophils % 0.7 (0.00-5.0) % Basophils % 0.3 (0.0-0.4) % Absolute Granulocytes 4.87 (1.4-6.9) x10^3/uL Basophils # 0.02 (0-0.4) x10^3/uL Sodium (137-145) mmol/L Potassium (3.5-5.1) mmol/L Chloride (98-107) mmol/L Carbon Dioxide (22-30) mmol/L Anion Gap (5-15) MEQ/L BUN (7-17) mg/dL Creatinine (0.52-1.04) mg/dL Estimated GFR ML/MIN Glucose (74-106) mg/dL Calcium (8.4-10.2) mg/dL Total Bilirubin (0.2-1.3) mg/dL AST (14-36) U/L ALT (0-35) U/L Alkaline Phosphatase (38-126) U/L Serum Total Protein (6.3-8.2) g/dL Albumin (3.5-5.0) g/dL Beta HCG, Quant mIU/ml Urine Color Hood A (Yellow) Urine Appearance Cloudy A (Clear) Urine pH 6.5 (4.6-8.0) Ur Specific Monroe 1.020 (1.005-1.030) Urine Protein 30 (Negative) Urine Glucose (UA) Negative (Negative) mg/dL Urine Ketones Negative (Negative) Urine Blood Large A (Negative) Urine Nitrite Negative (Negative) Urine Bilirubin Negative (Negative) Urine Urobilinogen 1.0 A (0.2) mg/dL Ur Leukocyte Esterase Small A (Negative) U Hyaline Cast (Auto) NONE SEEN (0-2) /LPF Urine Microscopic RBC >100 A (0-5) /HPF Urine Microscopic WBC 21-50 A (0-5) /HPF Ur Epithelial Cells Few (None Seen) /HPF Urine Bacteria Few A (None Seen) /HPF Urine Culture Reflexed YES (NO) ABO Group Rh Factor Antibody Screen (NEGATIVE) - Progress Progress: improved Progress Note: Patient is a 21-year-old female G4, P3 currently 5 weeks presents to our ED for evaluation of vaginal bleeding. Physical exam unremarkable. Patient currently asymptomatic. CBC CMP ordered. No significant findings observed. Type and screen ordered. Patient is Rh+. No indication for RhoGAM. Urinalysis reveals urinary tract infection. Patient confirmed that she was recently diagnosed with a UTI and is currently on Macrobid. Ultrasound ordered and compl eted. No gestational sac no pole or heart tones. Patient had a beta-hCG performed yesterday. hCG has decreased to 88 from 128 It appears patient experienced a complete miscarriage. Case discussed with Dr. Santiago our patient's [employer] physician who advised follow- up. Patient will continue the Macrobid. Portions of this note were created with voice recognition technology. There may be grammatical, spelling, punctuation or sound alike errors Complexity of problems is low, acute uncomplicated. No critical care time. Complexity of data reviewed and analyzed is moderate. Case management discussed with Dr. Santiago. Urinalysis independently interpreted by Dr. Ramirez. Laboratory work-up reviewed and analyzed by Dr. Ramirez as well. Urinalysis reveals urinary tract infection. Beta hCG decreased from 1 28-88. No indication for RhoGAM as patient is Rh+. Risk of complication and or risk of morbidity/mortality of patient management is minimal. Patient currently on Macrobid for urinary tract infection. No specific therapies administered. Patient agrees to follow-up with Dr. Santiago within 48 hours for evaluation. Time spent in discharge is approximately 10 minutes. Vital stable. Patient voices no other complaints or concerns at this time. Portions of this note were created with voice recognition technology. There may be grammatical, spelling, punctuation or sound alike errors 08/05/22 14:[address] Claudia Will see patient in: hospital (observation) Counseled pt/family regarding: lab results, diagnosis, need for follow-up, rad results - Departure Departure Disposition: Home Clinical Impression: UTI (urinary tract infection), Complete miscarriage Condition: Stable Critical Care Time: No Referrals: MATTHEW DELUCA [Primary Care Provider] - Follow up/PCP as directed Instructions: Urinary Tract Infection, Adult (DC) Additional Instructions: Discharge/Care Plan KD VARGAS was seen on 08/05/22 in the Emergency Room. The patient was counseled regarding Diagnosis,Lab results, Imaging studies, need for follow up and when to return to the Emergency Room. Prescriptions given: Discharge Note I have spoken with the patient and/or caregivers. I have explained the patient's condition, diagnosis and treatment plan based on the information available to me at this time. I have answered the patient's and/or caregiver's questions and addressed any concerns. The patient and/or caregivers have as good understanding of the patient's diagnosis, condition and treatment plan as can be expected at this point. The vital signs have been stable. The patient's condition is stable and appropriate for discharge from the emergency department. The patient will pursue further outpatient evaluation with the primary care physician or other designated or consulting physician as outlined in the discharge instructions. The patient and/or caregivers are agreeable to this plan of care and follow-up instructions have been explained in detail. The patient and/or caregivers have received these instruction. The patient/and or caregivers are aware that any significant change in condition or worsening of symptoms should prompt an immediate return to this or the closest emergency department or call 911. Prescriptions: Nitrofurantoin Macro 100 mg [Macrobid 100MG Capsule] 100 mg PO BID 7 Days #14 cap
[2022-08-05 13:50] LABS: Bacteria Few /HPF (None Seen); Epithelial Cells Few /HPF (None Seen); Hyaline Casts NONE SEEN /LPF (0-2); RBC >100 /HPF (0-5); WBC 21-50 /HPF (0-5)
[2022-08-05 13:54] LABS: ADD URINE CULTURE? YES (NO)
[2022-08-05 14:04] LABS: ABO TYPING O; Antibody Screen NEGATIVE (NEGATIVE); RH TYPING POSITIVE
[2022-08-05 14:24] VITALS: BP 125/77
[2022-08-05] MEDS ORDERED: Macrobid 100MG Capsule PO ONE (14:46)
[2022-08-05] MEDS ORDERED: Macrobid 100MG Capsule ONE (14:50)
[2022-08-05 15:00] VITALS: PULSE 92
[2022-08-05 15:03] VITALS: O2SAT 97
== END 2022-08-05 15:00 | disposition home or self-care (01) ==
LOC: ED 11:14
DX: O03.9 Complete or unspecified spontaneous abortion without complication (principal); N39.0 Urinary tract infection, site not specified; Z28.310 Unvaccinated for COVID-19
CPT/HCPCS: 36415; 76801; 80053; 81001; 84702; 85025; 86850; 86900; 86901; 87086; 99283; A9270-GY

== ENCOUNTER 2023-05-21 04:39 | Inpatient (IN) | payer BC, OTHER ==
[2023-05-21] MEDS ORDERED: Zofran 4 MG/2 ML VIAL IV PRN ×2 (04:49→16:07)
[2023-05-21] MEDS ORDERED: TYLENOL EXTRA STRENGTH 500 MG PO PRN (04:49)
[2023-05-21] MEDS ORDERED: XYLOCAINE 1% HCL 20 ML MDV IJ PRN (04:49)
[2023-05-21] MEDS ORDERED: STADOL 2 MG IV PRN (04:49)
[2023-05-21] MEDS ORDERED: BRETHINE 1 MG/ML SQ PRN (04:49)
[2023-05-21] MEDS ORDERED: OMNIPEN 2 GM*** 2 G in Sodium Chloride 100ML MINI-BAG PLUS 100 ML IV ONE (04:49)
[2023-05-21] MEDS ORDERED: PITOCIN 30 UNITS/ LR 500 ML 30 UNITS/500 ML PLAST..BAG IV SCH (05:00)
[2023-05-21 05:58] LABS: Absolute Neutrophil Ct (ANC) 4.93 x10^3/uL (1.4-6.9); BASOPHIL % 0.1 % (0.0-0.4); Basophil (Absolute #) 0.01 x10^3/uL (0-0.4); Eosinophil % 0.6 % (0.00-5.0); Eosinophil (Absolute #) 0.04 x10^3/uL (0-0.5); Hemoglobin 11.3 g/dL (12.0-16.0); IMMATURE GRAN # 0.05 x10^3u/L (0.00-0.03); IMMATURE GRAN % 0.7 % (0.00-0.4); Lymphocyte (Absolute #) 1.62 x10^3/uL (1.0-4.6); Lymphocytes % 22.8 % (24.0-44.0); Mean Cell Volume 90.2 fL (78-100); Mean Corpuscular Hemoglobin 29.1 pg (26-32); Mean Corpuscular Hgb Concent. 32.3 g/dL (32-36); Mean Platelet Volume 10.1 fL (7.5-11.0); Monocyte (Absolute #) 0.45 x10^3/uL (0.0-1.3); Monocytes % 6.3 % (0.0-12.0); Neutrophil % 69.5 % (36.0-66.0); Platelet Count 248 x10^3/uL (150-450); Red Blood Count 3.88 x10^6/uL (4.1-5.4); White Blood Count 7.1 x10^3/uL (4.0-10.5)
[2023-05-21] MEDS ORDERED: OMNIPEN 2 GM ONE (06:03)
[2023-05-21] MEDS ORDERED: Sodium Chloride 100ML MINI-BAG PLUS 100 ML IV ONE (06:03)
[2023-05-21 06:09] VITALS: RESP 18
[2023-05-21] MEDS: Lactated Ringers 1,000 ML IV SCH ×3 (06:11→15:16)
[2023-05-21 06:38] LABS: ABO TYPING O; Antibody Screen NEGATIVE (NEGATIVE); RH TYPING POSITIVE
[2023-05-21 07:00] LABS: Amphetamine,Urine NEGATIVE (NEGATIVE); Barbiturate,Urine NEGATIVE (NEGATIVE); Benzodiazepine,Urine NEGATIVE (NEGATIVE); Cocaine,Urine NEGATIVE (NEGATIVE); Methadone,Urine NEGATIVE (NEGATIVE); Opiate,Urine NEGATIVE (NEGATIVE); PCP,Urine NEGATIVE (NEGATIVE); THC,Urine NEGATIVE (NEGATIVE)
--- NOTE | 2023-05-21 09:16 | PCM.HP ---
History of Present Illness - Chief Complaint Chief Complaint: iOL History of Present Illness: is a 22 year old female at 39wks for IOL due to morbid obesity. Denies complaints or regular contractions. No bleeding or loss of fluid. Notes good movements. - Review of Systems Constitutional: No Symptoms Cardiac: No Symptoms Abdominal/Gastrointestinal: No Symptoms Genitourinary Symptoms: No Symptoms Medications & Allergies Home Medications: Home Medication List Vits W-Ca,Fe,FA(<1Mg) [] 1 tab PO DAILY 11/15/18 [History Confirmed 05/21/23] Allergies/Adverse Reactions: Allergies Allergy/AdvReac Type Severity Reaction Status Date / Time No Known Drug Allergies Allergy Verified 04/29/23 10:59 - Past Medical History Past Medical History: Yes Neurological History: No Pertinent History ENT History: No Pertinent History Cardiac History: No Pertinent History Respiratory History: No Pertinent History, Asthma Endocrine Medical History: No Pertinent History Musculoskelatal History: No Pertinent History GI Medical History: Gallbladder Disease History: No Pertinent History Pyscho-Social History: No Pertinent History Reproductive Disorders: No Pertinent History Comment: SX HX: CHOLECYSTECTOMY - Female History Expected Date of Delivery: 05/28/23 - Past Surgical History Past Surgical History: Yes Neuro Surgical History: No Pertinent History Cardiac History: No Pertinent History Respiratory Surgery: No Pertinent History GI Surgical History: Cholecystectomy Genitourinary Surgical Hx: No Pertinent History Musculskeletal Surgical Hx: No Pertinent History Female Surgical History: No Pertinent History - Social History Smoking Status: Never smoker Exposure to second hand smoke: No Alcohol: None Drug Use: none Significant Family History: no pertinent family hx, with GI flu bug last week - Physical Exam Vital Signs: Vital Signs - 24 hr Temp Pulse Resp BP BP Pulse Ox 05/21/23 08:45 97.7 F 84 18 132/63 05/21/23 08:30 97.7 F 81 18 125/69 05/21/23 08:15 97.7 F 82 18 127/73 99 05/21/23 08:00 97.7 F 75 18 134/68 134/68 05/21/23 07:45 97.7 F 84 18 134/66 05/21/23 07:30 97.7 F 05/21/23 07:15 97.7 F 05/21/23 06:15 98.5 F 63 18 96 05/21/23 05:11 98.5 F 63 18 120/63 96 General Appearance: no apparent distress Neurologic Exam: alert, cooperative, normal mood/affect Eye Exam: PERRL/EOMI Neck Exam: normal inspection Respiratory Exam: No respiratory distress, No accessory muscle use Cardiovascular Exam: regular rate/rhythm Gastrointestinal/Abdomen Exam: soft, No tenderness, No distention Pelvic Exam: not done Extremity Exam: normal inspection Skin Exam: normal color Results - Labs Lab/Micro Results: Lab Results-Last 24 Hours 05/21/23 05/21/23 05/21/23 Range/Units 05:49 05:49 06:41 WBC 7.1 (4.0-10.5) x10^3/uL RBC 3.88 L (4.1-5.4) x10^6/uL Hgb 11.3 L (12.0-16.0) g/dL Hct 35.0 (35-47) % MCV 90.2 (78-100) fL MCH 29.1 (26-32) pg MCHC 32.3 (32-36) g/dL RDW 14.0 (11.5-14.0) % Plt Count 248 (150-450) x10^3/uL MPV 10.1 (7.5-11.0) fL Gran % 69.5 H (36.0-66.0) % Immature Gran % (Auto) 0.7 H (0.00-0.4) % Nucleat RBC Rel Count 0.0 (0.00-0.1) % Eos # (Auto) 0.04 (0-0.5) x10^3/uL Immature Gran # (Auto) 0.05 H (0.00-0.03) x10^3u/L Absolute Lymphs (auto) 1.62 (1.0-4.6) x10^3/uL Absolute Monos (auto) 0.45 (0.0-1.3) x10^3/uL Absolute Nucleated RBC 0.00 (0.00-0.01) x10^3u/L Lymphocytes % 22.8 L (24.0-44.0) % Monocytes % 6.3 (0.0-12.0) % Eosinophils % 0.6 (0.00-5.0) % Basophils % 0.1 (0.0-0.4) % Absolute Granulocytes 4.93 (1.4-6.9) x10^3/uL Basophils # 0.01 (0-0.4) x10^3/uL Urine Opiates Level NEGATIVE (NEGATIVE) Ur Methadone NEGATIVE (NEGATIVE) Urine Barbiturates NEGATIVE (NEGATIVE) Ur Phencyclidine (PCP) NEGATIVE (NEGATIVE) Urine Amphetamine NEGATIVE (NEGATIVE) U Benzodiazepine Level NEGATIVE (NEGATIVE) Urine Cocaine NEGATIVE (NEGATIVE) Urine Marijuana (THC) NEGATIVE (NEGATIVE) ABO Group O Rh Factor POSITIVE Antibody Screen NEGATIVE (NEGATIVE) Assessment/Plan (1) Obesity affecting in third trimester Current Visit: Yes Status: Acute Assessment & Plan: 22 y/o at 39wks--Admit for IOL due to obesity and risk for IUFD. IOL started with pitocin and ampicillin for GBS prophylaxis. Will AROM when ap propriate. May have epidural if/when desired. status reassuring, category 1. Anticipate . Code(s): O99.213 - OBESITY COMPLICATING , THIRD TRIMESTER (2) Asthma affecting in third trimester Current Visit: Yes Status: Acute Code(s): O99.513 - DISEASES OF THE RESP SYS COMP , THIRD TRIMESTER; J45.909 - UNSPECIFIED ASTHMA, UNCOMPLICATED (3) GBS (group B Streptococcus carrier), +RV culture, currently Current Visit: Yes Status: Acute Code(s): O99.820 - STREPTOCOCCUS B CARRIER STATE COMPLICATING (4) Prior macrosomia in third trimester, antepartum Current Visit: Yes Status: Acute Code(s): O09.293 - SUPRVSN OF PREG W POOR REPRODCTV OR OBSTET HX, THIRD TRI
--- NOTE | 2023-05-21 09:53 | PCM.NOTE ---
Pt doing well, not feeling ctx much SVE /-2, AROM performed, clear FHT category I with normal baseline, +accels, no decels, moderate variability present [place] with frequency ctx at time of rupture, so pit decreased from 10 down to 4 milliunits/min Transabdominal US done to confirm vertex with image saved May have epidural if/when desired Anticipate
[2023-05-21] MEDS: OMNIPEN 1 GM*** 1 GM in Sodium Chloride 100ML MINI-BAG PLUS 100 ML IV SCH ×4 (10:08→22:57)
--- NOTE | 2023-05-21 12:11 | PCM.NOTE ---
Comfortable, no c/o. VS reviewed Alert, NAD SVE 3.5/70/-3/ant/vtx well-applied IUPC and FSE placed due to slow change and difficulty monitoring, pit at 10--ctx q2-3min but appear inadequate Will increase pit prn MVUs 200-300. status reassuring, category 1 with baseline 140, +accels, no decels, moderate variability present Epidural if desired; anticipate
[2023-05-21] MEDS ORDERED: Lactated Ringers 1,000 ML IV ONE ×2 (12:36→16:52)
[2023-05-21] MEDS ORDERED: Ephedrine Sulfate 50 MG/ML IV PRN (12:36)
[2023-05-21] MEDS ORDERED: FENTANYL 2 MCG-BUPIV 0.125%-NS 250 ML Epidur 250 ML EPIDURAL SCH (12:45)
[2023-05-21] MEDS ORDERED: HOLD NARCOTIC ANALGESICS AND SEDATIVES X24 HR MC PRN (16:07)
[2023-05-21] MEDS ORDERED: CLARITIN 10 MG PO PRN (16:07)
[2023-05-21] MEDS ORDERED: PERCOCET TABLET 5/325MG PO PRN (16:07)
[2023-05-21] MEDS ORDERED: Narcan 0.4 MG/ML IV PRN (16:07)
[2023-05-21] MEDS ORDERED: SUBLIMAZE 100 MCG/2 ML ONE ×2 (16:16→16:59)
[2023-05-21] MEDS ORDERED: TRANEXAMIC ACID 1000 MG/10 ML ONE (16:17)
[2023-05-21] MEDS ORDERED: XYLOCAINE 1%/Epi 1:100000 MDV 20 ML ONE (16:17)
[2023-05-21] MEDS ORDERED: KEFZOL 1 GM ONE (16:18)
[2023-05-21] MEDS ORDERED: Quelicin Fliptop 200 MG/10 ML ONE (16:22)
[2023-05-21] MEDS ORDERED: Zemuron 100 MG/10 ML ONE (16:22)
[2023-05-21] MEDS ORDERED: DIPRIVAN 200 MG/20 ML IV ONE (16:22)
[2023-05-21] MEDS ORDERED: Astramorph-Pf 5 MG/10 ML ONE (16:24)
[2023-05-21] MEDS ORDERED: Naropin 0.5% 30 ML VIAL ONE (16:40)
[2023-05-21] MEDS ORDERED: BRIDION 200MG/2ML IV ONE (16:50)
[2023-05-21] MEDS ORDERED: Pitocin 10 UNITS/ML ONE (16:52)
--- NOTE | 2023-05-21 16:56 | XRAY ---
Indication: Emergency section. Comparison: June 28, 2013 KUB appears nonacute and nonobstructed. Overlying draping and tiny pelvic air collection presumed from reported . No fetus. Solid organs and osseous structures grossly unremarkable.
[2023-05-21] MEDS ORDERED: Zofran 4 MG/2 ML VIAL ONE (17:22)
[2023-05-21] MEDS ORDERED: Methergine ONE (17:26)
--- NOTE | 2023-05-21 17:33 | OP ---
OB OP NOTE - OPERATIVE NOTE Surgery Date: 05/21/23 PREOPERATIVE DIAGNOSIS: Cord prolapse POST OPERATIVE DIAGNOSIS: Cord prolapse Procedure: Emergency Low Transverse Section Surgeon: REINA HOGAN (bookkeeper assistant: Dr. John Brooke, needed for adequate retraction and hemostasis) ANESTHESIA: epidural with local, then general ESTIMATED BLOOD LOSS: 700 CONDITION: Good COMPLICATIONS: cord prolapse SPECIMEN: placenta HISTORY - HISTORY HISTORY: HISTORY: FINDINGS - FINDINGS FINDINGS: FINDINGS: Cord prolapse noted that was not reducible, with long loop coming all the way out the vagina. heart tones just before transport were 64 and palpably remained low in the OR, so given anesthesia provider was not yet present and pt had a good epidural, procedure was started under local 60ml of 1% lidocaine with epi. General anesthesia induced prior to delivery of placenta. Normal uterus, tubes, and ovaries. APGARs 2 at 1 minute and 3 at 5 minutes, others pending. Cord gases: pH 7.08, BE -11.7; 7.30 BE -5.9. Wt 3620g. DESCRIPTION OF PROCEDURE - DESCRIPTION OF PROCEDURE DESCRIPTION OF PROCEDURE: DESCRIPTION OF PROCEDURE: Pt was taken to the operating room due to cord prolapse for crash . She verbally consented to proceeding. She was transferred to OR table and prepped with betadine. FHT were palpably in the 60s and anesthesia provider not yet available in house. I injected 40ml of 1% lidocaine with epi and draped her. Pfannensteil incision was made and an additional 20ml of 1% lidocaine with epi was injected under muscles in peritoneal space. Fascia was incised in the midline and muscles dissected off bluntly. Peritoneum was entered bluntly and extended. The uterine incision was incised in a low transverse fashion and the delivered atraumatically. No tone was noted with initial drying so cord was rapidly clamped and cut and placed on warmer for resuscitation. Anesthesia provider had then arrived, so placental delivery was delayed until general anesthesia had been obtained, with pressure held at the uterine incision with lap sponges. A segment of cord was collected for gases and passed off of the field. After induction of general anesthesia, placenta was delivered spontaneously. The uterus was then exteriorized and cleared of clots and debris. The incision was closed by a running locked stitch of 0 Chromic followed by horizontal imbricating stitch of 0 Vicryl to obtain excellent hemostasis. The posterior cul-de-sac was irrigated and cleared of clots and debris. The uterine incision was reinspected and hemostatic. The uterus was returned to the abdomen and the gutters were irrigated and cleared of clots and debris. All sites were hemostatic. The fascia was closed with 0 Vicryl. Skin and subcutaneous tissues were irrigated and excellent hemostasis ensured. Subcutaneous tissues were closed with 3-0 Chromic and skin with 4-0 Vicryl in subcuticular fashion. The pt tolerated the procedure well. Xray at end of case showed no foreign bodies or retained sponges. The patient was taken to the recovery room in good condition.
[2023-05-21] MEDS ORDERED: DEMEROL 50 MG ONE (17:42)
[2023-05-21 19:30] LABS: VBG BASE EXCESS -5.9 (-2.0-2.0); VBG CARBOXYHEMOGLOBIN 1.3 % T HGB (0.0-6.9); VBG HCO3- 20.2 meq/L (22-28); VBG HEMOGLOBIN 18.2; VBG O2 SATURATION 75.7 (95-100); VBG POTASSIUM 4.8 (3.5-5.1); VBG pH 7.3 (7.32-7.42)
[2023-05-21 19:31] LABS: VBG BASE EXCESS -11.7 (-2.0-2.0); VBG CARBOXYHEMOGLOBIN 0.8 % T HGB (0.0-6.9); VBG HCO3- 19.9 meq/L (22-28); VBG HEMOGLOBIN 18.4; VBG O2 SATURATION 52.1 (95-100); VBG POTASSIUM 5.8 (3.5-5.1)
[2023-05-21 19:32] LABS: VBG pH 7.08 (7.32-7.42)
[2023-05-22] MEDS ORDERED: LANSINOH 40 GM ONE (00:13)
[2023-05-22] MEDS ORDERED: LANSINOH 40 GM TOP PRN (00:56)
[2023-05-22] MEDS ORDERED: Dextrose 5%-Lr IV Solution 1000 ML 1,000 ML IV SCH (01:30)
[2023-05-22 06:40] LABS: Absolute Neutrophil Ct (ANC) 8.22 x10^3/uL (1.4-6.9); BASOPHIL % 0.1 % (0.0-0.4); Basophil (Absolute #) 0.01 x10^3/uL (0-0.4); Eosinophil (Absolute #) 0 x10^3/uL (0-0.5); Hemoglobin 8.6 g/dL (12.0-16.0); IMMATURE GRAN # 0.05 x10^3u/L (0.00-0.03); IMMATURE GRAN % 0.5 % (0.00-0.4); Lymphocyte (Absolute #) 1.44 x10^3/uL (1.0-4.6); Lymphocytes % 13.8 % (24.0-44.0); Mean Cell Volume 92.2 fL (78-100); Mean Corpuscular Hemoglobin 30.5 pg (26-32); Mean Corpuscular Hgb Concent. 33.1 g/dL (32-36); Mean Platelet Volume 10.5 fL (7.5-11.0); Monocyte (Absolute #) 0.71 x10^3/uL (0.0-1.3); Monocytes % 6.8 % (0.0-12.0); Neutrophil % 78.8 % (36.0-66.0); Platelet Count 229 x10^3/uL (150-450); Red Blood Count 2.82 x10^6/uL (4.1-5.4); Red Cell Distribution Width 14.1 % (11.5-14.0); White Blood Count 10.4 x10^3/uL (4.0-10.5)
[2023-05-22] MEDS: TORAdol 30 mg Injection IV PRN ×3 (10:42→23:14)
[2023-05-22] MEDS ORDERED: Venofer 100 MG/5 ML*** 200 MG in Sodium Chloride 0.9% 100 ML IV ONE (12:00)
[2023-05-22] MEDS ORDERED: Mylicon 80MG PO PRN (13:05)
[2023-05-22] MEDS: Docusate Sodium 100 MG PO SCH ×2 (13:57→22:47)
[2023-05-22] MEDS ORDERED: Adacel Vial IM ONE (14:00)
[2023-05-22] MEDS ORDERED: FERREX 150 PO SCH (14:00)
[2023-05-22] MEDS ORDERED: NORCO 5/325 MG PO PRN (16:00)
[2023-05-23 00:29] VITALS: O2SAT 98
[2023-05-23] MEDS: TORAdol 30 mg Injection IV PRN (06:03)
[2023-05-23 08:09] VITALS: BP 119/58; PULSE 81; TEMP 97.7
--- NOTE | 2023-05-23 08:11 | PCM.DS ---
Discharge Summary Date of Admission: 05/21/23 09:31 Date of Discharge: 05/23/23 Admitting Physician: REINA HOGAN MD Consults: Consults on Case 05/21/23 17:49 Navigation ONCE 05/22/23 01:12 Notify Anesthesia Provider PRN Primary Care Provider: NO FAMILY DOCTOR Allergies Allergies No Known Drug Allergies Allergy (Verified 04/29/23 10:59) Hospital Summary - Hospital Course Hospital Course: Admitted for IOL due to morbid obesity, which commenced with pitocin. Antibiotics were started for GBS prophylaxis, followed by AROM close to the time of the second dose. Epidural placed. IUPC and FSE placed due to slow progress and difficulty monitoring. Later in the afternoon, cord prolapse occurred, so emergency LTCS performed. Postoperatively, pt did well. Had acute blood loss anemia with Hct 26% which remained asymptomatic. IV iron given x1 dose and oral iron recommended at discharge. Ambulated and urinated without difficulty. Tolerated regular diet and had BM on POD1. Pain well controlled. Discharged to home on POD2 in good condition after review of medications, precautions, and followup. - Vitals & Intake/Output Vital Signs: Vital Signs Temperature 98.4 F 05/23/23 04:00 Pulse Rate 88 05/23/23 04:00 Respiratory Rate 18 05/23/23 04:00 Blood Pressure 126/62 05/23/23 04:00 O2 Sat by Pulse Oximetry 98 05/23/23 04:00 Intake & Output: Intake & Output 05/20/23 05/21/23 05/22/23 05/23/23 11:59 11:59 11:59 11:59 Intake Total 4600 Output Total 2550 Balance 2049 Weight 134.5 kg - Lab Result Diagrams: 05/22/23 05:23 Micro Results-Entire Visit: Microbiology 05/21/23 15:11 Urine Culture - Preliminary Catherized NO GROWTH TO DATE - Radiology Exams Ordered Rad Exams-Entire Visit: Radiology Procedures Category Date Time Status KUB Routine Exams 05/21/23 16:25 Completed - Procedures and Test Procedures and Tests throughout Hospitalization: Therapy Orders & Screens 05/22/23 10:34 Incentive Spirometry Q1H Comment: 10x/hour while awake Diagnosis: section Final Diagnosis/Problem List - Final Discharge Diagnosis/Problem (1) Obesity affecting in third trimester Current Visit: Yes Status: Acute Code(s): O99.213 - OBESITY COMPLICATING , THIRD TRIMESTER (2) Asthma affecting in third trimester Current Visit: Yes Status: Acute Code(s): O99.513 - DISEASES OF THE RESP SYS COMP , THIRD TRIMESTER; J45.909 - UNSPECIFIED ASTHMA, UNCOMPLICATED (3) GBS (group B Streptococcus carrier), +RV culture, currently Current Visit: Yes Status: Acute Code(s): O99.820 - STREPTOCOCCUS B CARRIER STATE COMPLICATING (4) Prior macrosomia in third trimester, antepartum Current Visit: Yes Status: Acute Code(s): O09.293 - SUPRVSN OF PREG W POOR REPRODCTV OR OBSTET HX, THIRD TRI - Discharge Discharge Date: 05/23/23 Disposition: Home, Self-Care Condition: Good Prescriptions: New Lanolin 40 gm [Lansinoh 40 gm] 40 gm TOP PRN PRN PRN Reason: Pain Hydrocodone/Acetaminophen [Hydrocodone-Acetamin 5-325 mg] 1 - 2 tab PO Q6HPRN PRN #20 tablet MDD 4 PRN Reason: Pain Ibuprofen [IBUPROFEN 400 MG TABLET] 2 tablet PO Q8H PRN PRN 10 Days #60 tablet PRN Reason: Pain Docusate Sodium 100 mg [Docusate Sodium 100 MG] 100 mg PO BID cap Ferrous Sulfate 325 mg [Feosol 325 mg] 325 mg PO DAILY #30 tablet Continue Vits W-Ca,Fe,FA(<1Mg) [] 1 tab PO DAILY Additional Instructions: schedule followup for [facility] check and 6 weeks for check Follow up with: DOCTOR,NO FAMILY [Primary Care Provider] -
== END 2023-05-23 10:30 | disposition home or self-care (01) | DRG 788 ==
LOC: OB 04:39 → OBSVTOIN 09:31 → OB 09:31
PROVIDERS: ADMIT Obstetrics & Gynecology; ATTEND Obstetrics & Gynecology
PROC: 10D00Z1 Extraction of Products of Conception, Low, Open Approach (ICD-10-PCS; principal; 2023-05-21)
DX: O69.0XX0 Labor and delivery complicated by prolapse of cord, not applicable or unspecified (principal); O99.214 Obesity complicating childbirth; O99.52 Diseases of the respiratory system complicating childbirth; J45.909 Unspecified asthma, uncomplicated; O99.824 Streptococcus B carrier state complicating childbirth; D64.9 Anemia, unspecified; Z3A.39 39 weeks gestation of pregnancy; Z37.0 Single live birth; Z20.828 Contact with and (suspected) exposure to other viral communicable diseases
CPT/HCPCS: 36415; 64488; 74018; 76937; 80307; 82805; 85014; 85018; 85025; 86850; 86900; 86901; 87086; 90715; J0290; J0330; J0690; J1330; J1756; J1885; J2175; J2274; J2405; J2590; J2704; J2795; J3010; L0625; A9270-GY